=== PATIENT | male | born 1960 | race Caucasian/White ===

== ENCOUNTER 2020-03-14 09:17 | Emergency (ER) | payer BC ==
[2020-03-14 09:21] LABS: Glucose,Whole Blood 121 mg/dL (75-99)
[2020-03-14 09:26] VITALS: BP 125/80; PULSE 63; RESP 18; TEMP 98.5
--- NOTE | 2020-03-14 09:46 | ED ---
General Adult HPI - General Chief complaint: Recheck/Abnormal Lab/Rx Stated complaint: Low BP Time Seen by Provider: 03/14/20 09:19 Source: EMS Mode of arrival: EMS Limitations: no limitations - History of Present Illness Initial comments: Dictation was produced using [employer] dictation software. please excuse any grammatical, word or spelling errors. This patient was cared for during a federal and state declared state of emergency secondary to Covid 19 Chief Complaint: 59-year-old male presents with syncope History of Present Illness: A 59-year-old male he was brought in from outpatient CT. Patient had a syncopal episode. Found to be slightly hypotensive was then brought to the emergency department. Patient had systolics that were [address] nurse to have patient sent to the emergency room. Patient denies any history of cardiac problems. A normal echo recently. Patient has a history of vasovagal syncope with blood draws and needle pokes. States that the syncopal episode happened immediately after he had a IV started. Patient states he feels fine. He had not had breakfast today. The ROS documented in this emergency department record has been reviewed and confirmed by me. Those systems with pertinent positive or negative responses have been documented in the HPI. All other systems are other negative and/or noncontributory. PHYSICAL EXAM: General Impression: Alert and oriented x3, not in acute distress HEENT: Normocephalic atraumatic, extra-ocular movements intact, pupils equal and reactive to light bilaterally, mucous membranes moist. Cardiovascular: Heart regular rate and rhythm Chest: Able to complete full sentences, no retractions, no tachypnea Abdomen: abdomen soft, non-tender, non-distended, no organomegaly Musculoskeletal: Pulses present and equal in all extremities, no peripheral edema Motor: no focal deficits noted Neurological: CN II-XII grossly intact, no focal motor or sensory deficits noted Skin: Intact with no visualized rashes Psych: Normal affect and mood ED course: 59-year-old male with clinical presentation consistent with vasovagal syncope. Signs upon arrival are within acceptable limits. Patient's feeling well. Patient feels at baseline. EKG is unremarkable. EKG interpretation: Ventricular rate 61, normal sinus rhythm, GA interval 140, QRS 90, QTC 438. No GA prolongation, no QTC prolongation, no ST or T-wave changes noted. Overall, this EKG is unremarkable - Related Data Home Medications Medication Instructions Recorded Confirmed Multivitamins, Thera [Multivitamin 1 tab PO DAILY 03/14/20 03/14/20 (formulary)] Simvastatin [Zocor] 40 mg PO HS 03/14/20 03/14/20 Allergies Allergy/AdvReac Type Severity Reaction Status Date / Time No Known Allergies Allergy Unverified 03/14/20 09:29 Review of Systems ROS Statement: Those systems with pertinent positive or pertinent negative responses have been documented in the HPI. ROS Other: All systems not noted in ROS Statement are negative. Past Medical History Past Medical History: Hyperlipidemia History of Any Multi-Drug Resistant Organisms: None Reported Past Surgical History: No Surgical Hx Reported Smoking Status: Never smoker Past Alcohol Use History: None Reported Past Drug Use History: None Reported General Exam Limitations: no limitations Course Vital Signs 03/14/20 09:21 Temperature 98.5 F Pulse Rate 63 Respiratory 18 Rate Blood Pressure 125/80 O2 Sat by Pulse 96 Oximetry Medical Decision Making - Lab Data Lab Results 03/14/20 Range/Units 09:20 POC Glucose (mg/dL) 121 H (75-99) mg/dL POC Glu Communications Technician ID Celeste Garcia Disposition Clinical Impression: Syncope Disposition: HOME SELF-CARE Condition: Good Instructions (If sedation given, give patient instructions): Syncope (ED) Is patient prescribed a controlled substance at d/c from ED?: No Referrals: Murray Stewart DO [Primary Care Provider] - 1-2 days Time of Disposition: 09:46
== END 2020-03-14 09:56 | disposition home or self-care (01) ==
LOC: EC 09:17
DX: R55 Syncope and collapse (principal); E78.5 Hyperlipidemia, unspecified; Z79.899 Other long term (current) drug therapy
CPT/HCPCS: 36415; 93005; 99284

== ENCOUNTER → 2020-03-14 | Outpatient (CLI) | payer BC ==
[2020-03-14 09:13] LABS: Glucose,Whole Blood 117 mg/dL (75-99)
--- NOTE | 2020-03-14 18:21 | CT ---
EXAMINATION TYPE: CT urogram wo/w con DATE OF EXAM: 03/14/2020 COMPARISON: None INDICATION: Hematuria DLP: 1853.00 mGycm, Automated exposure control for dose reduction was used. CONTRAST: 100 ml mL of Isovue 370. Study performed without Oral Contrast TECHNIQUE: Axial images were obtained from above the diaphragm to the pubic rami in the axial plane a t 5 mm thick sections. Reconstructed images are reviewed on the computer in the coronal plane. FINDINGS: Limited CT sections are obtained the lung bases. The lung bases are clear. Coronary artery calcific ation is noted. CT ABDOMEN: Liver: Normal Spleen: Normal Pancreas: Normal Adrenal glands: The adrenal glands are normal. Gallbladder: Normal Kidneys: No masses are evident. No hydronephrosis is present. No cysts are present. No renal stones are evident. Delayed images were obtained through the kidneys, which remain unremarkable. Three-D reconstructed images were obtained through the renal collecting systems. Renal calyces infund ibula and renal pelves appear normal. Ureters follow a normal caliber course and contour to the urina ry bladder. Urinary bladder filled with contrast appears normal. Aorta: Normal Inferior vena cava: Normal. CT PELVIS: Loops of bowel within the abdomen and pelvis are normal. There are loops of bowel which are incom pletely distended or lack oral contrast limiting their evaluation. Appendix: Normal as visualized. Urinary bladder: Normal. Genitourinary structures: Prostate is prominent. Osseous structures: No suspicious lytic or sclerotic lesions. IMPRESSIONS: 1. No suspicious abnormality to account for hematuria.
== END | disposition home or self-care (01) ==
LOC: RADCTMAIN 08:18
PROVIDERS: ATTEND Urology
DX: R31.9 Hematuria, unspecified (principal)
CPT/HCPCS: 74178; 36415; 74400; Q9967

== ENCOUNTER 2020-03-28 10:03 | Day surgery (SDC) | payer BC ==
[~2020-03-28 10:03] MED LIST: LACTATED RINGERS 1,000 ML IV SCH; LIDOCAINE 1% (10MG/ML) FOR IV START INTRADERMA PRN
[2020-03-28 10:43] VITALS: RESP 16; TEMP 97.5
[2020-03-28] MEDS ORDERED: PROPOFOL 10 MG/ML 20 ML VIAL IV ONE (11:11)
--- NOTE | 2020-03-28 11:24 | P.PCN ---
Date of Procedure: 03/28/20 Procedure(s) Performed: BRIEF HISTORY: Patient is a 59-year-old pleasant white male scheduled for an elective colonoscopy as a part of screening for colorectal neoplasia. His last colonoscopy was 10 years ago. PROCEDURE PERFORMED: Colonoscopy. PREOPERATIVE DIAGNOSIS: Screening for colon cancer. IV sedation per Anesthesia. PROCEDURE: After informed consent was obtained, the patient, was brought into the endoscopy unit. IV sedation was administered by Anesthesia under continuous monitoring. Digital rectal examination was normal. Initially the Olympus CF-160 flexible video colonoscope was then inserted in the rectum, gradually advanced into the cecum without any difficulty. Careful examination was performed as the scope was gradually being withdrawn. Ileocecal valve and the appendiceal orifice were visualized and appeared normal. Prep was excellent. Mucosa of the cecum, ascending colon, transverse colon, descending colon, sigmoid colon, and rectum appeared normal. Retroflexion was performed in the rectum and monitor hemorrhoids were seen. The patient tolerated the procedure well. IMPRESSION: Normal-appearing colon from rectum to cecum with no evidence of colorectal neoplasia Small internal hemorrhoids. RECOMMENDATIONS: Findings of this examination were discussed with the patient as well as his family. He was advised to have a repeat screening colonoscopy in 10 years..
[2020-03-28 11:44] VITALS: BP 135/88; PULSE 56
== END 2020-03-28 12:17 | disposition home or self-care (01) ==
LOC: ORWHC2ENDO 10:03
PROVIDERS: ATTEND Internal Medicine Gastroenterology
DX: Z12.11 Encounter for screening for malignant neoplasm of colon (principal); K64.8 Other hemorrhoids; E78.5 Hyperlipidemia, unspecified; Z98.890 Other specified postprocedural states; Z79.899 Other long term (current) drug therapy
CPT/HCPCS: J2704; G0121